=== PATIENT | male | born 1995 | race Caucasian/White ===

== ENCOUNTER 2023-10-18 06:37 | Emergency (ER) | payer BC, OTHER ==
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
[2023-10-18 07:04] VITALS: BP 114/68; PULSE 80; RESP 18; TEMP 97.9; O2SAT 98
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
== END 2023-10-18 07:50 | disposition home or self-care (01) ==
LOC: ED 06:37
DX: M21.831 Other specified acquired deformities of right forearm (principal); M79.631 Pain in right forearm; Z79.899 Other long term (current) drug therapy
CPT/HCPCS: 29105; 73090; 99282